=== PATIENT | female | born 1950 | race Caucasian/White ===

== ENCOUNTER 2021-01-15 09:19 | Inpatient (IN) | payer MEDICARE, OTHER ==
[~2021-01-15 09:19] MED LIST: AUGMENTIN 500-1 EACH PO; FLOVENT DISKUS50 MCG INH; GENTAMICIN SULF30 GM TOP; LACTULOSE10 G/15 ML PO; LEVETIRACETAM500 MG PO; LOVAZA1 GM PO; MEGACE40 MG PO; MOVANTIK25 MG PO; PERCOCET 7.5/321 TAB PO; PROAMATINE5 MG PO; REMERON15 MG PO; RENAGEL800 MG PO; RENO CAPS SOFTGE1 MG PO; SYNTHROID50 MC1 PO; VITAMIN B-121000 MC1 PO; ZANAFLEX2 MG PO; ZOFRAN4 MG PO
[2021-01-15 09:45] LABS: BASOPHIL 0.3 % (0-2); EOSINOPHIL 0.6 % (0-7); HCT 43.1 % (37.0-47.0); HGB 13.3 g/dl (12.5-16.0); LYMPHOCYTE 17.5 % (15-48); MCH 29.1 pg (25.0-31.0); MCHC 30.9 g/dL (32.0-36.0); MCV 94.3 fL (78.0-100.0); MONOCYTE 5.4 % (0-12); MPV 9.5 fL (6.0-9.5); NEUTROPHIL 75.7 % (41-80); NRBC 0; PLT 221 K/uL (150-400); RBC 4.57 M/uL (4.20-5.40); RDW 13.2 % (11.5-14.0); WBC 7.8 K/uL (4.0-10.5)
[2021-01-15 09:56] LABS: INR 0.99 (0.9-1.2); PROTHROMBIN TIME 12.4 SECONDS (11.4-13.6); PTT 25.7 SECONDS (22.2-34.7)
[2021-01-15 10:02] LABS: ALBUMIN 2.5 g/dL (3.4-5.0); BILIRUBIN - TOTAL 0.4 mg/dL (0.2-1.0); BUN/CREAT RATIO (CALC) 9.6 RATIO; CREATININE 2.29 mg/dL (0.51-0.95); GLOBULIN (CALCULATION) 3.9 g/dL; TOTAL PROTEIN 6.4 g/dL (6.4-8.2)
[2021-01-15 10:11] LABS: LACTIC ACID 0.5 mmol/L (0.4-1.9)
[2021-01-15 10:17] LABS: BILIRUBIN NEGATIVE (NEGATIVE); BLOOD TRACE-INTACT Ery/uL (NEGATIVE); CLARITY CLEAR (CLEAR); COLOR YELLOW (YELLOW); GLUCOSE (U) NORMAL (NORMAL); LEUKOCYTES NEGATIVE Leu/uL (NEGATIVE); NITRITE NEGATIVE (NEGATIVE); PROTEIN 2+ mg/dL (NEGATIVE); UROBILINOGEN 0.2 mg/dL (0.2-1.0); pH 6.5 (5.0-9.0)
[2021-01-15 10:18] LABS: ECSTASY (MDMA) NEGATIVE (NEGATIVE); MARIJUANA (THC) NEGATIVE (NEGATIVE); METHADONE NEGATIVE (NEGATIVE); OPIATES POSITIVE (NEGATIVE)
[2021-01-15 10:19] LABS: AMPHETAMINES NEGATIVE (NEGATIVE); BARBITURATES NEGATIVE (NEGATIVE); OXYCODONE NEGATIVE (NEGATIVE)
[2021-01-15 10:25] LABS: BACTERIA 4+
[2021-01-15 10:26] LABS: TRANSITIONAL EPITHELIAL CELLS RARE
[2021-01-15 11:11] LABS: CORONAVIRUS 2019 SARS-COV-2 NEGATIVE (NEGATIVE); INFLUENZA A NAA NEGATIVE (NEGATIVE)
[2021-01-15] MEDS ORDERED: VIMPAT150 MG PO (13:28)
[2021-01-15] MEDS ORDERED: HYDROCODON-ACE1 EAC2 PO (13:29)
[2021-01-15] MEDS ORDERED: ROCALTROL 0.0.25 MCG PO (13:31)
[2021-01-15] MEDS ORDERED: KEPPRA100 MG/1 M PO (13:32)
[2021-01-15] MEDS ORDERED: ELAVIL50 MG PO (13:32)
[2021-01-15] MEDS ORDERED: SYNTHROID50 MCG PO (13:34)
[2021-01-15] MEDS ORDERED: GENTAMICIN SULF30 GM TOP (13:35)
--- NOTE | 2021-01-16 01:06 | NUR ---
patient has skin tear on right forearm, opened up in bed, covered with gauze pad
[2021-01-16 05:55] LABS: HCT 43.4 % (37.0-47.0); HGB 13.2 g/dl (12.5-16.0); MCH 28.5 pg (25.0-31.0); MCHC 30.4 g/dL (32.0-36.0); MCV 93.7 fL (78.0-100.0); MPV 9.4 fL (6.0-9.5); RBC 4.63 M/uL (4.20-5.40); RDW 13.1 % (11.5-14.0); WBC 8.9 K/uL (4.0-10.5)
[2021-01-16 06:19] LABS: BUN/CREAT RATIO (CALC) 10.2 RATIO; CREATININE 2.15 mg/dL (0.51-0.95); POTASSIUM 4.6 mmol/L (3.5-5.1)
--- NOTE | 2021-01-16 16:03 | NUR ---
PT HAD 500 CC URINE OUTPUT ON BEDPAN, PT WAS BLADDER SCANNED AND FOUND 278 CC IN BLADDER STILL. JAMIA PROCUREMENT MANAGER IN AND OUT CATHED PT.
--- NOTE | 2021-01-16 18:37 | NUR ---
PT ALERT AND ORIENTED X 3 AT THIS TIME. PT STATED SHE WAS IN [place] AT [facility], STATED HER NAME AND BIRTHDAY AND KNEW THE DAY AND YEAR. PT ALSO KNEW WHICH MEDICATION SHE WAS GETTING AT THIS TIME.
--- NOTE | 2021-01-17 18:17 | NUR ---
PATIENT WITH 200ML UOP FOR DAYSHIFT, AWARE. MD AWARE OF NOON AND DINNER BLOOD GLUCOSE CHECKS.
[2021-01-18 06:04] LABS: BASOPHIL 0.3 % (0-2); EOSINOPHIL 1.5 % (0-7); HCT 44.4 % (37.0-47.0); HGB 13.6 g/dl (12.5-16.0); LYMPHOCYTE 22.8 % (15-48); MCH 28.8 pg (25.0-31.0); MCHC 30.6 g/dL (32.0-36.0); MCV 93.9 fL (78.0-100.0); MONOCYTE 9.6 % (0-12); MPV 9.4 fL (6.0-9.5); NEUTROPHIL 65.5 % (41-80); NRBC 0; PLT 211 K/uL (150-400); RBC 4.73 M/uL (4.20-5.40); RDW 13.1 % (11.5-14.0); WBC 6.8 K/uL (4.0-10.5)
[2021-01-18 06:29] LABS: BUN/CREAT RATIO (CALC) 11.5 RATIO; CREATININE 2.26 mg/dL (0.51-0.95); POTASSIUM 4.4 mmol/L (3.5-5.1)
--- NOTE | 2021-01-18 13:52 | NUR ---
01/18/21 Ms. Fried lives with her spouse. She has a power w/c, rw, 3in1, and s. chair. She has been followed by [facility] in the past. Mr. Fried reports that Ms. Fried was alert and oriented x 4 a week prior to admission. She was also walking 8 - 10 steps to transfer prior to a week ago. - Ms. Fried's daughter, Ayanna Mireles, reports her mother's mentation to have greatly improved, although mild confusion is still noted. - Ms. Cooper, Mr. Fried, and Ms. Fried are in agreement for Ms. Fried to return home with [facility]. Affliation explained. A referral was made via [facility]. - report was given to Dr. Ramirez.
[2021-01-19] MEDS ORDERED: LEVOFLOXACIN250 MG PO (12:41)
[2021-01-19] MEDS ORDERED: NORCO 5-325 TA1 EACH PO (13:05)
--- NOTE | 2021-01-19 13:42 | NUR ---
-PT DC'd - TRANSPORTED FROM FLOOR VIA WHEELCHAIR W/ & ALL HER BELONGINGS TO THE FRONT EXIT - DRIVING PT HOME WHERE SHE WILL BE CARED FOR VIA [facility]. -PT OFF UNIT @ 1338 W/ NO ISSUES
== END 2021-01-19 13:38 | disposition home health service (06) | DRG 689 ==
LOC: FER 09:19 → FTCU 11:48
PROVIDERS: Emergency Medicine; Internal Medicine; ADMIT Hospitalist
DX: N30.00 Acute cystitis without hematuria (principal); G93.41 Metabolic encephalopathy; N18.4 Chronic kidney disease, stage 4 (severe); F03.90 Unspecified dementia, unspecified severity, without behavioral disturbance, psychotic disturbance, mood disturbance, and anxiety; G40.909 Epilepsy, unspecified, not intractable, without status epilepticus; L30.4 Erythema intertrigo; Z20.822 Contact with and (suspected) exposure to COVID-19; E78.5 Hyperlipidemia, unspecified; E11.40 Type 2 diabetes mellitus with diabetic neuropathy, unspecified
CPT/HCPCS: 36415; 70450; 71250; 80048; 80053; 80305; 81001; 82962; 83605; 84484; 85025; 85610; 85730; 87040; 87076; 87088; 87186; 92523; 93005; 94010; 97162; 97166; 97535; J0696; J2405; J7030; J7042; J7070; P9612; U0002

== ENCOUNTER 2021-01-20 20:00 | Day surgery (SDCO) | payer MEDICARE, OTHER ==
[~2021-01-20 20:00] MED LIST changes: +ELAVIL50 MG PO; +HYDROCODON-ACE1 EAC2 PO; +KEPPRA100 MG/1 M PO; +LEVOFLOXACIN250 MG PO; +NORCO 5-325 TA1 EACH PO; +ROCALTROL 0.0.25 MCG PO; +SYNTHROID50 MCG PO; +VIMPAT150 MG PO
[2021-01-20 20:50] LABS: BASOPHIL 0.4 % (0-2); EOSINOPHIL 0.5 % (0-7); HCT 43.8 % (37.0-47.0); HGB 13.5 g/dl (12.5-16.0); LYMPHOCYTE 24.2 % (15-48); MCH 28.9 pg (25.0-31.0); MCHC 30.8 g/dL (32.0-36.0); MCV 93.8 fL (78.0-100.0); MONOCYTE 8.2 % (0-12); MPV 9.6 fL (6.0-9.5); NEUTROPHIL 66.1 % (41-80); NRBC 0; PLT 275 K/uL (150-400); RBC 4.67 M/uL (4.20-5.40); RDW 13.4 % (11.5-14.0); WBC 8.5 K/uL (4.0-10.5)
[2021-01-20 21:22] LABS: ALBUMIN 2.4 g/dL (3.4-5.0); BILIRUBIN - TOTAL 0.2 mg/dL (0.2-1.0); BUN/CREAT RATIO (CALC) 7.6 RATIO; C-REACTIVE PROTEIN 1.1 mg/dL (<=0.90); CREATININE 1.97 mg/dL (0.51-0.95); FT4 (FREE T4) 1.3 ng/dL (0.76-1.46); POTASSIUM 4.8 mmol/L (3.5-5.1); TOTAL PROTEIN 6.4 g/dL (6.4-8.2)
[2021-01-20 21:23] LABS: LACTIC ACID 1.8 mmol/L (0.4-1.9)
[2021-01-20 21:43] LABS: CORONAVIRUS 2019 SARS-COV-2 NEGATIVE (NEGATIVE); INFLUENZA A NAA NEGATIVE (NEGATIVE)
[2021-01-20 22:01] LABS: BILIRUBIN NEGATIVE (NEGATIVE); BLOOD 1+ Ery/uL (NEGATIVE); CLARITY CLEAR (CLEAR); COLOR YELLOW (YELLOW); GLUCOSE (U) TRACE mg/dL (NORMAL); LEUKOCYTES NEGATIVE Leu/uL (NEGATIVE); NITRITE NEGATIVE (NEGATIVE); PROTEIN 2+ mg/dL (NEGATIVE); SPECIFIC GRAVITY 1.025 (1.001-1.030); UROBILINOGEN 0.2 mg/dL (0.2-1.0)
[2021-01-20 22:07] LABS: SQUAMOUS EPITHELIAL CELLS RARE; URINARY RBC RARE; URINARY WBC RARE
[2021-01-21 06:15] LABS: CREATININE 1.88 mg/dL (0.51-0.95); POTASSIUM 4.5 mmol/L (3.5-5.1)
[2021-01-21 07:53] LABS: BASOPHIL 0.5 % (0-2); EOSINOPHIL 1.1 % (0-7); HCT 43.3 % (37.0-47.0); HGB 13.4 g/dl (12.5-16.0); LYMPHOCYTE 27.9 % (15-48); MCH 29.1 pg (25.0-31.0); MCHC 30.9 g/dL (32.0-36.0); MCV 93.9 fL (78.0-100.0); MONOCYTE 10.7 % (0-12); MPV 9.5 fL (6.0-9.5); NRBC 0; PLT 223 K/uL (150-400); RBC 4.61 M/uL (4.20-5.40); RDW 13.4 % (11.5-14.0); WBC 7.3 K/uL (4.0-10.5)
--- NOTE | 2021-01-21 08:00 | NUR ---
PT IS LETHARGIC BUT CAN BE AROUSED. PT IS NOT FOLLOWING COMMANDS OR ANSWERING ORIENTATION QUESTIONS.
--- NOTE | 2021-01-21 10:26 | NUR ---
PT LIVES WITH SPOUSE; PLEASE ADVISE OF DISCHARGE NEEDS
--- NOTE | 2021-01-21 14:36 | NUR ---
PT IS PICKING AT IV SITE, PULSE OX, CLOTHING, ETC. PT IS VERY CONFUSED, AT TIMES PT WAS ORIENTED TO SELF BUT NOT AT THE MOMENT. PT IS THROWING LEGS OUT OF THE BED, SHAKING BED RAILS, AND HER SENTENCES ARE INCOHERENT. BED ALARM IS ACTIVATED AND BED LOCKED IN LOWEST POSITION. WHEN CAME TO VISIT AT NOON PT SEEMED TO GET EVEN MORE CONFUSED DURING HIS VISIT AND PT STARTED CRYING UNABLE TO BE COMFORTED OR REDIRECTED. PT IS NOT FOLLOWING COMMANDS AT THIS TIME EVEN THOUGH SHE DID EARLIER WHEN TAKING HER PO MEDICATIONS.
--- NOTE | 2021-01-21 16:16 | NUR ---
PER DR. CABRERA HE WANTS PT. TO GO TO INPATIENT PSY. REFERRALS MADE TO [facility] [phone] OR [phone]. SPOKE WITH NOMAN SHE ADVISED THAT THERE ARE NO BEDS AVAILABLE TODAY, BUT CAN CALL BACK ON SUNDAY. REFERRAL SENT TO [facility] [phone]. TC TO [facility] - [phone], HAD TO LEAVE MESSAGE. REFERRAL MADE TO [facility].
--- NOTE | 2021-01-21 16:32 | NUR ---
REFERRALS MADE TO [facility] - [facility] - [phone] FAX [phone] [facility] [phone] FAX [phone] [facility] [place] - [facility] [phone] FAX [phone].. LEFT MESSAGE AT [facility] [phone].
--- NOTE | 2021-01-21 16:35 | NUR ---
MARIO FROM [facility] AT [facility] SHE HAS ACCEPTED PATIENT WHEN MEDICALLY STABLE. CALL [phone]. FAX NUMBER IS [phone].
--- NOTE | 2021-01-22 12:55 | NUR ---
[facility] ACCEPTED PER CHELLY AT [facility]. WHEN CALLED TODAY THEY SAID NO THEY WOULD NOT TAKE HER I SPOKE TO JOSE E SHE SAID [facility] SHOULD NOT HAVE TOLD US SHE WAS ACCEPTED; PER [facility]RA[facility]DOS NOT APPROPRIATE FOR THEM EXPRESSED CONCERN ABOUT HER CREAT. I DID VERVALIZE CONCERN TO DR. CABRERA HE FELT THIS WAS STABLE FOR HER. I DID LET DR. CABRERA KNOW THAT [facility] SUGGESTED SHE TRANSFER TO HER KIDNEY DOC. I CALLED AND SPOKE TO LAURIE AT [facility]-THIS PT IS 14 IN LINE TO HAVE A BED SO NO TIME SOON. [facility] SPOKE TO SARKIS THEY DO NOT HAVE ANYONE IN ADMISSION OFFICE THIS WEEKEND TO TAKE THE REFFERAL. I SPOKE TO ISAAC AT [facility] [phone] SHE SAID THEY CAN DO A MOBILE CONSULT AT [phone] OPT 1 AND I GAVE THIS INFORMATION TO THE NURSE ON [facility]. I SPOKE TO DR. CABRERA AGAIN AND LET HIM KNOW ALL THE INFORMATION..
--- NOTE | 2021-01-22 14:42 | NUR ---
1430 STRAIGHT CATH PERFORMED BY THIS RN, PT TOLERATED WELL. 500 ML OF CLEAR YELLOW URINE COLLECTED. PT TOLERATED WELL.
--- NOTE | 2021-01-22 19:18 | NUR ---
PT RESTLESS AT THIS TIME, CALLINGOUT FOR HER GRANDSON, PT CUSSING AND HOLLERING AT [facility], REFUSING TO ALLOW RN TO GET VITALS AND DO ASSESSMENT. SIGNAL MAINTAINER NOTIFIED, 1 ON WITH RN AT THIS TIME.
--- NOTE | 2021-01-22 23:55 | NUR ---
PT COMBATIVE AT THIS TIME, HOLLERING OUT, TRYING TO KICK STAFF, CUSSING AT STAFF, THROWING BLANKETS. DOES NOT RE ORIENT WLL, KEEPS HOLLERING FOR . FAMILY LIFE EDUCATOR NOTIDFIED
--- NOTE | 2021-01-23 04:39 | NUR ---
PT RESTING AT THIS TIME, REFUSED VITALS AT MORNING ROUNDS AND ASSESMENT, PT RESTLESS, ANALYTICS INTERN NOTIFIED OF PTs REFUSAL
--- NOTE | 2021-01-23 13:06 | NUR ---
1300 PT DISCHARGED, DISCHARGE INSTRUCTIONS DISCUSSED WITH , HE VERBALIZED UNDERSTANDING. PT TRANSPORTED VIA WHEELCHAIR TO PERSONAL VEHICLE. PT TRANSFERED VIA WHEELCHAIR TO CAR VIA 2 ASSIST.
== END 2021-01-23 12:57 | disposition home health service (06) ==
LOC: FER 20:00 → FTCU 23:26
PROVIDERS: Emergency Medicine Emergency Medical Services; Nurse Practitioner; ADMIT Internal Medicine
DX: G93.41 Metabolic encephalopathy (principal); N18.4 Chronic kidney disease, stage 4 (severe); F32.9 Major depressive disorder, single episode, unspecified; F03.91 Unspecified dementia, unspecified severity, with behavioral disturbance; F05 Delirium due to known physiological condition; N20.0 Calculus of kidney; N30.00 Acute cystitis without hematuria; R41.0 Disorientation, unspecified; Z79.899 Other long term (current) drug therapy; Z86.69 Personal history of other diseases of the nervous system and sense organs; Z98.890 Other specified postprocedural states; Z20.822 Contact with and (suspected) exposure to COVID-19
CPT/HCPCS: 36415; 70450; 70551; 71045; 80048; 80053; 81001; 82140; 83605; 84145; 84439; 84443; 84484; 85025; 86140; 87040; 87088; 93005; 96372; G0378; J1644; J2060; J3486; J7030; U0002

== ENCOUNTER 2021-09-24 04:25 | Day surgery (SDCO) | payer MEDICARE, OTHER ==
[~2021-09-24] VITALS: Ht 152.4 cm; Wt 50.0 kg
[2021-09-24 05:07] LABS: BASOPHIL 0.4 % (0-2); HCT 33.3 % (37.0-47.0); HGB 9.9 g/dl (12.5-16.0); LYMPHOCYTE 23.6 % (15-48); MCH 29.2 pg (25.0-31.0); MCHC 29.7 g/dL (32.0-36.0); MCV 98.2 fL (78.0-100.0); MONOCYTE 8.4 % (0-12); MPV 9.5 fL (6.0-9.5); NEUTROPHIL 65.2 % (41-80); NRBC 0; PLT 205 K/uL (150-400); RBC 3.39 M/uL (4.20-5.40); RDW 14.4 % (11.5-14.0); WBC 5.4 K/uL (4.0-10.5)
[2021-09-24 05:32] LABS: BILIRUBIN NEGATIVE (NEGATIVE); BLOOD TRACE-INTACT Ery/uL (NEGATIVE); CLARITY CLEAR (CLEAR); COLOR YELLOW (YELLOW); GLUCOSE (U) NORMAL (NORMAL); LEUKOCYTES TRACE Leu/uL (NEGATIVE); NITRITE NEGATIVE (NEGATIVE); PROTEIN 1+ mg/dL (NEGATIVE); SPECIFIC GRAVITY 1.025 (1.001-1.030); UROBILINOGEN 0.2 mg/dL (0.2-1.0)
[2021-09-24 05:43] LABS: LACTIC ACID 0.7 mmol/L (0.4-1.9)
[2021-09-24 05:48] LABS: BILIRUBIN - TOTAL 0.3 mg/dL (0.2-1.0); BUN/CREAT RATIO (CALC) 8.8 RATIO; CREATININE 2.05 mg/dL (0.51-0.95); FT4 (FREE T4) 0.8 ng/dL (0.76-1.46); GLOBULIN (CALCULATION) 3.8 g/dL; MAGNESIUM 1.7 mg/dL (1.8-2.4); POTASSIUM 4.8 mmol/L (3.5-5.1); TOTAL PROTEIN 5.8 g/dL (6.4-8.2)
[2021-09-24 06:37] LABS: CORONAVIRUS 2019 SARS-COV-2 NEGATIVE (NEGATIVE); INFLUENZA A NAA NEGATIVE (NEGATIVE)
--- NOTE | 2021-09-24 09:56 | NUR ---
09/24/21 Please consider discharge or full admit. Thanks You.
[2021-09-24] MEDS ORDERED: ELAVIL50 MG PO (10:15)
[2021-09-24] MEDS ORDERED: ATORVASTATIN CA40 MG PO (10:16)
[2021-09-24] MEDS ORDERED: ROCALTROL 0.0.25 MCG PO (10:19)
[2021-09-24] MEDS ORDERED: ALL DAY ALLERGY10 M2 PO (10:20)
[2021-09-24] MEDS ORDERED: CIPRO250 MG PO (10:20)
[2021-09-24] MEDS ORDERED: PREMARIN0.625 MG PO (10:22)
[2021-09-24] MEDS ORDERED: BENADRYL25 MG PO (10:22)
[2021-09-24] MEDS ORDERED: FEOSOL325 MG PO (10:22)
[2021-09-24] MEDS ORDERED: FLORINEF0.1 MG PO (10:23)
[2021-09-24] MEDS ORDERED: FLONASE ALLER15.8 ML (10:23)
[2021-09-24] MEDS ORDERED: PROZAC20 MG PO ×2 (10:24→10:25)
[2021-09-24] MEDS ORDERED: LASIX40 MG PO (10:26)
[2021-09-24] MEDS ORDERED: GENTAMICIN SULF30 GM TOP (10:27)
[2021-09-24] MEDS ORDERED: HYDROCODON-ACE1 EAC2 PO (10:28)
[2021-09-24] MEDS ORDERED: LACTULOSE10 G/15 ML PO (10:29)
[2021-09-24] MEDS ORDERED: VIMPAT100 MG PO (10:29)
[2021-09-24] MEDS ORDERED: KEPPRA100 MG/1 M PO (10:30)
[2021-09-24] MEDS ORDERED: SYNTHROID25 MCG PO (10:34)
[2021-09-24] MEDS ORDERED: LOVAZA1 G1 PO (10:35)
[2021-09-24] MEDS ORDERED: MOVANTIK25 MG PO (10:36)
[2021-09-24] MEDS ORDERED: MEGACE40 MG PO (10:36)
[2021-09-24] MEDS ORDERED: PROAMATINE5 MG PO (10:36)
[2021-09-24] MEDS ORDERED: LOVAZA1 GM PO (10:37)
[2021-09-24] MEDS ORDERED: PERCOCET 7.5/321 TAB PO (10:38)
[2021-09-24] MEDS ORDERED: REMERON15 MG PO (10:40)
[2021-09-24] MEDS ORDERED: PHENYTOIN 100M100 MG PO (10:40)
[2021-09-24] MEDS ORDERED: RENVELA800 MG PO (10:41)
[2021-09-24] MEDS ORDERED: RENA-VITE TABL0.8 MG PO (10:41)
[2021-09-24] MEDS ORDERED: SODIUM BICARBO650 M1 PO (10:42)
[2021-09-24] MEDS ORDERED: LEVAQUIN250 MG PO (10:44)
[2021-09-24] MEDS ORDERED: HEPARIN 1,1000 UNIT/ SC (10:45)
[2021-09-24 11:13] LABS: INR 0.94 (0.9-1.2)
[2021-09-24 11:16] LABS: IRON % SATURATION 43.3 %SAT (20-50)
[2021-09-25 06:55] LABS: BASOPHIL 0.7 % (0-2); EOSINOPHIL 4.5 % (0-7); HCT 32.8 % (37.0-47.0); HGB 9.8 g/dl (12.5-16.0); LYMPHOCYTE 29.9 % (15-48); MCH 29.1 pg (25.0-31.0); MCHC 29.9 g/dL (32.0-36.0); MCV 97.3 fL (78.0-100.0); MONOCYTE 8.8 % (0-12); MPV 9.6 fL (6.0-9.5); NEUTROPHIL 55.8 % (41-80); NRBC 0; PLT 222 K/uL (150-400); RBC 3.37 M/uL (4.20-5.40); RDW 14.1 % (11.5-14.0); WBC 5.8 K/uL (4.0-10.5)
[2021-09-25 07:06] LABS: INR 0.92 (0.9-1.2); PROTHROMBIN TIME 11.8 SECONDS (11.8-13.4)
[2021-09-25 07:14] LABS: ALBUMIN 1.8 g/dL (3.4-5.0); ALKALINE PHOSHATASE 92 U/L (46-116); ALT 27 U/L (14-59); AST 30 U/L (15-37); BILIRUBIN - TOTAL 0.3 mg/dL (0.2-1.0); BUN 18 mg/dL (7-18); BUN/CREAT RATIO (CALC) 8.7 RATIO; CHLORIDE 110 mmol/L (98-107); CO2 (BICARBONATE) 21 mmol/L (21-32); CREATININE 2.08 mg/dL (0.51-0.95); GLOBULIN (CALCULATION) 3.2 g/dL; GLUCOSE 79 mg/dL (74-106); MAGNESIUM 1.7 mg/dL (1.8-2.4); PHOSPHORUS 3.7 mg/dL (2.6-4.7); POTASSIUM 4.5 mmol/L (3.5-5.1)
[2021-09-25 07:15] LABS: C-REACTIVE PROTEIN <0.20 mg/dL (<=0.90)
[2021-09-26 05:54] LABS: BASOPHIL 0.5 % (0-2); EOSINOPHIL 2.4 % (0-7); HCT 29.8 % (37.0-47.0); HGB 9.4 g/dl (12.5-16.0); LYMPHOCYTE 30.6 % (15-48); MCH 29.7 pg (25.0-31.0); MCHC 31.5 g/dL (32.0-36.0); MONOCYTE 8.8 % (0-12); MPV 9.8 fL (6.0-9.5); NEUTROPHIL 57.4 % (41-80); NRBC 0; PLT 209 K/uL (150-400); RBC 3.17 M/uL (4.20-5.40); RDW 13.8 % (11.5-14.0); WBC 6.6 K/uL (4.0-10.5)
[2021-09-26 06:11] LABS: CREATININE 2.13 mg/dL (0.51-0.95); MAGNESIUM 2.2 mg/dL (1.8-2.4)
[2021-09-26] MEDS ORDERED: TAMSULOSIN HCL0.4 MG PO (09:42)
[2021-09-26] MEDS ORDERED: AMOXICILLIN500 MG PO (09:42)
--- NOTE | 2021-09-26 10:46 | NUR ---
09/26/21 Ms. Fried lives at home with her spouse. She has a rw, wcm power wc, ramp, 3in1, and s. chair. Her spouse performes the household duties to include cooking, Ms. Fried reports difficulty getting up from a chair. She states that her spouse assist with transfers. [facility] is curent and have been notified of OBD admission and discharge.
== END 2021-09-26 10:40 | disposition home health service (06) ==
LOC: FER 04:25 → FMS 07:59
PROVIDERS: Emergency Medicine Emergency Medical Services; ADMIT Family Medicine
DX: G93.40 Encephalopathy, unspecified (principal); N30.00 Acute cystitis without hematuria; R33.9 Retention of urine, unspecified; K59.09 Other constipation; D63.1 Anemia in chronic kidney disease; D53.9 Nutritional anemia, unspecified; I12.9 Hypertensive chronic kidney disease with stage 1 through stage 4 chronic kidney disease, or unspecified chronic kidney disease; N18.4 Chronic kidney disease, stage 4 (severe); G40.909 Epilepsy, unspecified, not intractable, without status epilepticus; E03.9 Hypothyroidism, unspecified; G89.29 Other chronic pain; F17.210 Nicotine dependence, cigarettes, uncomplicated; Z20.822 Contact with and (suspected) exposure to COVID-19; Z66 Do not resuscitate; Z88.1 Allergy status to other antibiotic agents; Z88.8 Allergy status to other drugs, medicaments and biological substances; Z79.2 Long term (current) use of antibiotics; Z79.899 Other long term (current) drug therapy; Z90.710 Acquired absence of both cervix and uterus; Z90.49 Acquired absence of other specified parts of digestive tract; Z96.651 Presence of right artificial knee joint; Z80.9 Family history of malignant neoplasm, unspecified
CPT/HCPCS: 36415; 36600; 70450; 71045; 80048; 80053; 81001; 82140; 82607; 82728; 82803; 83540; 83550; 83605; 83735; 84100; 84145; 84439; 84443; 84484; 85025; 85610; 86140; 87040; 87088; 93005; 97163; 97166; 97530-GP; 97535; G0378; J0690; J0692; J0696; J3475; U0002

== ENCOUNTER 2022-04-15 22:48 | Emergency (ER) | payer MEDICARE, OTHER ==
[~2022-04-15 22:48] MED LIST changes: +ALL DAY ALLERGY10 M2 PO; +AMOXICILLIN500 MG PO; +ATORVASTATIN CA40 MG PO; +BENADRYL25 MG PO; +CIPRO250 MG PO; +FEOSOL325 MG PO; +FLONASE ALLER15.8 ML; +FLORINEF0.1 MG PO; +HEPARIN 1,1000 UNIT/ SC; +LASIX40 MG PO; +LEVAQUIN250 MG PO; +LOVAZA1 G1 PO; +PHENYTOIN 100M100 MG PO; +PREMARIN0.625 MG PO; +PROZAC20 MG PO; +RENA-VITE TABL0.8 MG PO; +RENVELA800 MG PO; +SODIUM BICARBO650 M1 PO; +SYNTHROID25 MCG PO; +TAMSULOSIN HCL0.4 MG PO; +VIMPAT100 MG PO
[2022-04-15 23:12] LABS: BASOPHIL 0.5 % (0-2); EOSINOPHIL 0.4 % (0-7); HCT 42.2 % (37.0-47.0); HGB 13.4 g/dl (12.5-16.0); LYMPHOCYTE 20.1 % (15-48); MCH 28.9 pg (25.0-31.0); MCHC 31.8 g/dL (32.0-36.0); MCV 91.1 fL (78.0-100.0); MONOCYTE 5.7 % (0-12); MPV 9.1 fL (6.0-9.5); NEUTROPHIL 72.2 % (41-80); NRBC 0; PLT 390 K/uL (150-400); RBC 4.63 M/uL (4.20-5.40); RDW 13.4 % (11.5-14.0); WBC 10.8 K/uL (4.0-10.5)
[2022-04-15 23:33] LABS: ALBUMIN 2.2 g/dL (3.4-5.0); BILIRUBIN - TOTAL 0.4 mg/dL (0.2-1.0); BUN/CREAT RATIO (CALC) 17.1 RATIO; CREATININE 3.27 mg/dL (0.51-0.95); GLOBULIN (CALCULATION) 4.1 g/dL; POTASSIUM 5.2 mmol/L (3.5-5.1); TOTAL PROTEIN 6.3 g/dL (6.4-8.2)
[2022-04-16 00:31] LABS: LACTIC ACID 0.3 mmol/L (0.4-1.9)
[2022-04-16 01:01] LABS: CORONAVIRUS 2019 SARS-COV-2 NEGATIVE (NEGATIVE); INFLUENZA A NAA NEGATIVE (NEGATIVE)
== END 2022-04-16 05:40 | disposition other institution (70) ==
LOC: FER 22:48
PROVIDERS: Emergency Medicine
DX: E86.0 Dehydration (principal); N17.9 Acute kidney failure, unspecified; R55 Syncope and collapse; N18.9 Chronic kidney disease, unspecified; Z88.6 Allergy status to analgesic agent; Z88.1 Allergy status to other antibiotic agents; Z20.822 Contact with and (suspected) exposure to COVID-19
CPT/HCPCS: 36415; 70450; 71045; 80053; 83605; 83880; 84145; 84484; 85025; 87040; 93005; J0692; J7030; U0002

== ENCOUNTER 2022-04-28 11:18 | Emergency (ER) | payer MEDICARE, OTHER ==
[2022-04-28 14:46] LABS: BASOPHIL 0.3 % (0-2); EOSINOPHIL 0 % (0-7); HCT 39.7 % (37.0-47.0); HGB 12.6 g/dl (12.5-16.0); LYMPHOCYTE 12.5 % (15-48); MCH 29.1 pg (25.0-31.0); MCHC 31.7 g/dL (32.0-36.0); MCV 91.7 fL (78.0-100.0); MONOCYTE 6.6 % (0-12); MPV 9.1 fL (6.0-9.5); NEUTROPHIL 80.1 % (41-80); NRBC 0; PLT 205 K/uL (150-400); RBC 4.33 M/uL (4.20-5.40); RDW 13.2 % (11.5-14.0); WBC 10.6 K/uL (4.0-10.5)
[2022-04-28 15:09] LABS: ALBUMIN 2.5 g/dL (3.4-5.0); BILIRUBIN - TOTAL 0.3 mg/dL (0.2-1.0); BUN/CREAT RATIO (CALC) 7.2 RATIO; CREATININE 2.22 mg/dL (0.51-0.95); GLOBULIN (CALCULATION) 3.8 g/dL; POTASSIUM 4.3 mmol/L (3.5-5.1); TOTAL PROTEIN 6.3 g/dL (6.4-8.2)
[2022-04-28 16:26] LABS: BILIRUBIN NEGATIVE (NEGATIVE); BLOOD 2+ Ery/uL (NEGATIVE); CLARITY CLEAR (CLEAR); COLOR YELLOW (YELLOW); GLUCOSE (U) NORMAL (NORMAL); LEUKOCYTES NEGATIVE Leu/uL (NEGATIVE); NITRITE NEGATIVE (NEGATIVE); PROTEIN 1+ mg/dL (NEGATIVE); UROBILINOGEN 0.2 mg/dL (0.2-1.0); pH 6.5 (5.0-9.0)
== END 2022-04-29 00:05 | disposition other institution (70) ==
LOC: FER 11:18
PROVIDERS: Emergency Medicine
DX: S91.011A Laceration without foreign body, right ankle, initial encounter (principal); S41.112A Laceration without foreign body of left upper arm, initial encounter; S00.511A Abrasion of lip, initial encounter; S00.83XA Contusion of other part of head, initial encounter; N18.6 End stage renal disease; J18.9 Pneumonia, unspecified organism; R41.82 Altered mental status, unspecified; Z20.822 Contact with and (suspected) exposure to COVID-19; W01.0XXA Fall on same level from slipping, tripping and stumbling without subsequent striking against object, initial encounter; Y93.89 Activity, other specified; Y92.009 Unspecified place in unspecified non-institutional (private) residence as the place of occurrence of the external cause
CPT/HCPCS: 36415; 36600; 70450; 71250; 72125; 72170; 73590; 73600; 80053; 81001; 82803; 84443; 84484; 85025; 87088; 93005; 96365; J2543; U0002